=== PATIENT | female | born 1975 | race Caucasian/White ===

== ENCOUNTER → 2017-02-09 | Outpatient (CLI) | payer MEDICAID | LOC: FIMAGING 09:04 | PROVIDERS: ATTEND Nurse Practitioner Women's Health | CPT/HCPCS: G0204 ==

== ENCOUNTER → 2017-09-19 | Outpatient (CLI) | payer MEDICAID | LOC: FIMAGING 12:19 | PROVIDERS: ATTEND Nurse Practitioner | DX: M25.511 Pain in right shoulder (principal); B20 Human immunodeficiency virus [HIV] disease; F32.9 Major depressive disorder, single episode, unspecified ==

== ENCOUNTER → 2018-05-23 | Outpatient (CLI) | payer MEDICAID | LOC: FIMAGING 09:44 | PROVIDERS: ATTEND Nurse Practitioner | DX: M79.645 Pain in left finger(s) (principal) ==